=== PATIENT | female | born 1935 | race Caucasian/White ===

== ENCOUNTER 2016-10-22 16:38 | Emergency (ER) | payer OTHER ==
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
[2016-10-22] MEDS ORDERED: LISINOPRIL-HCT1 EACH PO (18:11)
[2016-10-22] MEDS ORDERED: ADVAIR 250-501 EACH INH (18:11)
[2016-10-22] MEDS ORDERED: MYRBETRIQ50 M1 PO (18:12)
[2016-10-22] MEDS ORDERED: CARBIDOPA-LEVO1 EAC7 PO (18:12)
[2016-10-22] MEDS ORDERED: FLUOXETINE HCL20 M2 PO (18:12)
[2016-10-22] MEDS ORDERED: TUDORZA PRESS400 MCG INH (18:13)
[2016-10-22] MEDS ORDERED: MOMETASONE FURO45 GM TOP (18:14)
[2016-10-22] MEDS ORDERED: PROTOPIC100 G1 TOP (18:14)
[2016-10-22] MEDS ORDERED: HYDROCORTISONE15 GM TOP (18:14)
[2016-10-22] MEDS ORDERED: BETAMETHASONE D15 G3 TOP (18:16)
[2016-10-22] MEDS ORDERED: [UNRECOGNIZED DRUG - OTHER] TOP (18:16)
[2016-10-22] MEDS ORDERED: CICLOPIROX15 GM TOP (18:17)
[2016-10-22] MEDS ORDERED: NAPROXEN375 M2 PO (18:18)
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
[2016-10-22 18:27] VITALS: BP 151/78
== END 2016-10-22 18:28 ==
LOC: ERH 16:38
DX: S16.1XXA Strain of muscle, fascia and tendon at neck level, initial encounter (principal); V89.2XXA Person injured in unspecified motor-vehicle accident, traffic, initial encounter; Y92.9 Unspecified place or not applicable
CPT/HCPCS: 72050